=== PATIENT | female | born 1965 | race Caucasian/White ===

== ENCOUNTER → 2019-08-10 09:05 | Outpatient (CLI) | payer MEDICAID, SELFPAY ==
--- NOTE | 2019-08-10 09:29 | MRI_ITS ---
STUDY: MRI BRAIN WITH AND WITHOUT CONTRAST (ATTENTION INTERNAL AUDITORY CANALS - I.A.C.''s) REASON FOR EXAM: Female, 53 years old. dizziness, bilateral tinnitus, light headed TECHNIQUE: Standardized multiplanar fat and water weighted pulse sequences were obtained. iv Dotarem 15ml was administered for the contrast portion of the examination. COMPARISON: None. FINDINGS: Normal bilateral temporal bones. Normal bilateral internal auditory canals. There is no demonstrated intracanalicular or cisternal vestibular schwannoma (acoustic neuroma). There is no enhancement of the bilateral VIIth or VIIIth cranial nerves. Normal bilateral cochlea, vestibules and semicircular canals. Normal size of the ventricles and extra-axial spaces for the patient''s age. Normal white matter tracts of the supratentorial brain. There is no evidence for recent intracranial ischemia or other cause of cytotoxic edema on diffusion weighted imaging (DWI). Normal T2* images of the brain without demonstrated susceptibility artifact. There is no demonstrated hemosiderin stain. Normal bilateral basal ganglia. Normal thalami. Normal flow voids within the major intracranial circulation suggesting patency by spin echo criteria. Normal venous enhancement. There is no enhancing intra-axial or extra-axial abnormality. There is no extra-axial fluid accumulation. Normal sella turcica, pituitary gland, infundibular stalk, optic chiasm and hypothalamus. Normal tectal plate and pineal gland. Normal midbrain, amparo and medulla. Normal cerebellum. Normal basal cisterns. No demonstrated orbital abnormality, within the constraints of a routine brain study. Normal visualized paranasal sinuses. Normal calvarium and skull base. Normal visualized soft tissue structures. Normal visualized upper cervical spine. MRI/Brain W/WO Contrast IMPRESSION: Normal unenhanced and enhanced MRI of the bilateral internal auditory canals (I.A.C''s). Electronically Signed: Alen Reyez MD at 14:09 EST Tel , Service support ,
== END ==
PROVIDERS: PCP Nurse Practitioner Family; Referring Provider Otolaryngology; Visit Provider Otolaryngology
DX: R42 Dizziness and giddiness (principal)
CPT/HCPCS: 70553; A9575

== ENCOUNTER → 2022-02-27 | Outpatient (CLI) | payer MEDICARE, MEDICAID, SELFPAY ==
--- NOTE | 2022-02-27 17:08 | TILTTABLE_ITS ---
Staff Staff: Lisa Zheng, Chitra Cooper and Evelia Romano Summary Protocol: 70 Degree Upright Tilt Pre Test Resting HR: 70 Pre Test Resting BP: 142/67 Minimum Test HR: 68 Maximum Test HR: 106 Minimum Test BP: 128/68 Maximum Test BP: 151/77 Reason for Test Termination: Reached Maximum Test Time Physician Tilt Table Report Patient's Physicians Primary Care Physician: Bonnie Auguste NP Chief Librarian Branch Or Department: Delfino Garcia Indications/Diagnosis: Syncope Procedure Comments: The patient presented to the tilt table laboratory and was awake and alert and warm and dry. The baseline heart rate was 70 bpm with a baseline blood pressure 142/67 mmHg. The cardiac rhythm was normal sinus rhythm. The patient was placed in the 70 degree upright tilt table position for 20 minutes. The patient remained awake and alert and warm and dry. The minimal heart rate was 68 bpm with a minimal blood pressure 128/68 mmHg. The cardiac rhythm remained normal sinus rhythm. The patient noted dizziness, and arm cooler , but did not lose consciousness. The patient was returned to the supine position. The patient was administered nitroglycerin sublingual 0.4 mg x 1. The patient was then returned to the 70 degree upright tilt table position for approximately 8 minutes. The patient remained alert and oriented and warm and dry. During that time the minimal heart rate was 85 bpm with a minimal blood pressure 131/63 mmHg. The cardiac rhythm remained sinus rhythm. The patient noted I feel less dizzy , arms cool , hands shaky, neck pale . The patient did not lose consciousness. The patient was returned to the supine position. The patient remained alert and oriented and warm and dry. The concluding heart rate was 75 bpm with a concluding blood pressure 129/78 mmHg. The cardiac rhythm remained sinus rhythm. Summary: 70 degree upright tilt table study pre and post nitroglycerin sublingual challenge considered negative for reproducible vasovagal/neurocardiogenic mediated syncope. This note was generated using a voice recognition system and there may be incorrect words, spelling or punctuation that were not noted when reviewing the office note prior to saving.
[2022-02-27 17:14] VITALS: BP 128/68; BP 142/67; BP 151/77
== END | disposition home or self-care (01) ==
PROVIDERS: PCP Nurse Practitioner Family; Referring Provider Psychiatry & Neurology Neurology; Visit Provider Psychiatry & Neurology Neurology
DX: R55 Syncope and collapse (principal)
CPT/HCPCS: 93660; J7040; A4216

== ENCOUNTER 2022-03-19 13:34 | Day surgery (SDC) | payer MEDICARE, MEDICAID, SELFPAY ==
[2022-03-19 13:58] VITALS: BP 138/71; PULSE 66; RESP 16; TEMP 36.7; O2SAT 96; BMI 31.1
[2022-03-19] MEDS: Lactated Ringers 1,000 ML 15 ML IV (14:17)
[2022-03-19] MEDS: Cefazolin 2 GM in 0.9% Normal Saline 100 ML IV (16:10)
[2022-03-19] MEDS: Lidocaine 2% (20 ml mdv) 20 ML Vial (16:24)
--- NOTE | 2022-03-19 16:28 | RAD_ITS ---
INDICATION: PERMANENT SPINAL CORD STIM EXAMINATION/TECHNIQUE: X-RAY - XR Spine Lumbar 2 or 3 Views COMPARISON: None. FLUOROSCOPY TIME: 238.8 seconds FLUOROSCOPY DOSE: 122.29 mGy FINDINGS: 10 images were obtained intraoperatively demonstrating placement of spinal cord simulator leads. No radiologist was present for the procedure, please refer to operative report for details. RAD/Lumbar Spine 2 or 3 Views IMPRESSION: Please refer to operative report for details. Electronically Signed: Mikie Weathers MD at 11:01 EDT ,
[2022-03-19] MEDS: Bacitracin 500 UNITS/GM PACKET (17:20)
--- NOTE | 2022-03-19 17:45 | OP.PCM_ITS ---
Report of Operation Date of Procedure: 03/19/22 Description of Surgical Findings:: Pre-Operative Diagnosis:?Lumbosacral radiculopathy, lumbosacral degenerative disc disease, lumbosacral spinal stenosis, postlaminectomy syndrome of the lumbar spine Post-Operative Diagnosis:?Lumbosacral radiculopathy, lumbosacral degenerative disc disease, lumbosacral spinal stenosis, postlaminectomy syndrome of the lumbar spine Surgery/Procedure Performed::?1.? Spinal cord stimulator thoracolumbar leads placement x2 #2 spinal cord stimulator Medtronic intellus generator placement #3 spinal cord stimulator generator pocket creation at the right gluteal region #4 spinal cord stimulator simple programming, 5-intraoperative fluoroscopic interpretation Description of Surgical Findings:: MAC COMPLICATIONS: None BLOOD LOSS: Minimal Implanted device: Spinal cord stimulator lead [id number] lot number [id number], lead #2? [id number] lot number [id number] Medtronic spinal cord stimulator generator intellus serial number [id number] PROCEDURE IN DETAIL: History and physical today was reviewed. Risks and benefits of procedure explained. The patient understood, agreed to procedure, informed consent was obtained. IV inserted per routine protocol. The patient was taken to the operating room, placed in the prone position with a pillow positioned underneath the abdomen. A 2 g of Ancef IV piggyback was infused per anesthesia. The lower back and right gluteal area was prepped and draped in a sterile fashion using iodine x3 Ioban was placed.? The C-arm was brought in position for AP view at the L2-3 vertebral bodies under direct visualization fluoroscopy on a true AP view the L2-3 interlaminar space was identified skin and subcutaneous tissue and size approximately 10 cc of a mix of 2% lidocaine and 0.25% Marcaine using a 25-gauge regular needle followed by a 25-gauge 3-1/2 inch spinal needle towards the interlaminar space at L2-3, the skin and subcutaneous tissue were then anesthetized and using an 11-gauge blade was then taken down to the skin and subcutaneous tissue using a 14-gauge 3-1/2 inch Touhy needle provided by the [employer] kit the needle was passed through the skin towards the interlaminar space at L2-3 and a paramedian approach the needle was then advanced under direct visualization fluoroscopy towards the interlaminar space at L2-3 [id number] technique was then carried to air towards the interlaminar space at L2-3 once the tip of the needle was in the epidural space and loss of resistance was encountered to air and after confirmation of AP as well as oblique view of the spinal cord stimulator lead was then advanced under direct visualization fluoroscopy to be at the tip of the lead at T8 and the bottom of the lead around mid T10 after confirmation of AP as well as lateral view to confirm correct placement of the lead in the posterior compartment of the epidural space the previous procedure was then repeated to the above level at L1-2 to the left lumbar paramedian approach, ?the second lead was then inserted under direct visualization with fluoroscopy to be at the mid T8 and mid T10 area the leads were were then connected to the external neurostimulator and patient was then awakened to confirm satisfactory coverage of the painful area once satisfactory coverage was then achieved the stylette of each needle was then removed and the skin and subcutaneous tissue on to the left of the paramedian needles was then taken anesthetized with a total of 10 cc of the previous mixture of 0.25% Marcaine and 2% lidocaine using a 25-gauge regular needle the incision was then taken down through the skin and subcutaneous tissue towards the fascia making sure hemostasis was then maintained via cautery, the spinal cord stimulator leads were then passed through the above incision and secured using the biwing and sutured down with a 2-0 silk to the fascia at that level the spinal cord stimulator leads were then tunneled via a tunneler provided by the [employer] kit towards the previously incised spinal cord stimulator battery at the right gluteal region skin and subcutaneous tissue were anesthetized with approximately 10 cc of a mix of 2% lidocaine and 0.25% Marcaine using a 25 gauge regular needle, skin and subcutaneous tissue was then taken down with the 11-gauge blade hemostasis was maintained with Bovie and direct pressure the incision was then taken down to the fascia and the battery was then secured with the 2-0 silk sutures that were the spinal cord stimulator leads the upper lead was then marked the new until spinal cord stimulator battery was then provided Via [employer] kit the battery was then reattached of the spinal cord stimulator make ensure that the top lead is attached to the top position from 0-7 electrodes and the bottom from 8-15 electrodes once impedance was then checked to be in the proper average number the intellus battery was then inserted into the pocket and impedance with when checked again the pocket was then inspected to confirm hemostasis in place, the intellus battery was then secured to the fascia using a 2-0 silk to the upper eyes of the battery confirming an upward writing of the intellus facing posterior,? once complete confirmation the battery was then placed in the position and the the mid paramedian and the gluteal incisions were then closed primarily through 0 Vicryl in an interrupted fashion followed by a 3-0 Vicryl in a running fashion followed by a 4-0 Vicryl to the skin, hemostasis was then maintained during the procedure the skin was then covered with a Steri-Strips and bacitracin patient was then returned into the supine position in a stable condition and returned to recovery in a stable condition patient experienced no signs or symptoms of intrathecal or intravascular injection patient experienced no paresthesia the procedure was completed without any apparent difficulty any complication the patient appeared to tolerate well, motor as well as sensory function was unchanged from prior to the procedure ESTIMATED BLOOD LOSS: Minimal less than 25 mL ASSESSMENT AND PLAN: This is a 56-year-old female with lumbosacral radiculopathy lumbosacral degenerative disc disease lumbosacral spinal stenosis, postlaminectomy syndrome of the lumbar spine status post 1.? Spinal cord stimulator thoracolumbar leads placement x2 #2 spinal cord stimulator Medtronic intellus generator placement #3 spinal cord stimulator generator pocket creation at the right gluteal region #4 spinal cord stimulator simple programming, 5-intraoperative fluoroscopic interpretation patient will continue her current medications a prescription was provided to the patient? Keflex 500 mg 1 p.o. every 8 hours for 7 days, postop instruction were given in writing to the patient and her significant other as well as verbally and in writing, patient will follow approximately 1 week for reevaluation.
[2022-03-19 17:50] VITALS: BP 130/88; BP 138/71; PULSE 91; RESP 16; TEMP 36.9; O2SAT 100
[2022-03-19 17:55] VITALS: BP 118/70; BP 138/71; PULSE 72; RESP 18; O2SAT 99
[2022-03-19 18:00] VITALS: BP 126/76; BP 138/71; PULSE 82; RESP 18; O2SAT 96
== END 2022-03-19 18:38 | disposition home or self-care (01) ==
LOC: SDC 13:35 → AC 13:36
PROVIDERS: PCP Nurse Practitioner Family; Referring Provider Anesthesiology Pain Medicine; Visit Provider Anesthesiology Pain Medicine
PROC: (CPT 63685; principal; 2022-03-19 15:00)
DX: M48.07 Spinal stenosis, lumbosacral region (principal); M96.1 Postlaminectomy syndrome, not elsewhere classified; I10 Essential (primary) hypertension; M51.17 Intervertebral disc disorders with radiculopathy, lumbosacral region
CPT/HCPCS: 63685; 63650 ×2; 00300; 72100; 76000; C1778; C1820; J7120; J2405

== ENCOUNTER → 2023-02-26 | Outpatient (CLI) | payer MEDICARE, SELFPAY ==
--- NOTE | 2023-02-26 10:57 | ART_ITS ---
Reason For Study: PVD Procedure A bilateral lower extremity continuous wave Doppler with analog waveform analysis,segmental pressures,and ankle brachial indexes without exercise. Left Segmental Pressures Left brachial= 151mmHg. Left posterior tibial artery = 171mmHg. Left dorsalis pedis artery = 149mmHg. Left digit = 102 mmHg. The left posterior tibial artery waveforms are triphasic. The left dorsalis pedis waveforms are triphasic. Right Segmental Pressures Right brachial= 144mmHg. Right posterior tibial artery = 174mmHg. Right dorsalis pedis artery = 157mmHg. Right digit = 112 mmHg. The right posterior tibial artery waveforms are triphasic. The right dorsalis pedis waveforms are triphasic. Indices The right ankle brachial index by the posterior tibial artery is 1.15. The right ankle brachial index by the dorsalis pedis is 1.04. The right digital-brachial index is 0.74. The left ankle brachial index by the posterior tibial artery is 1.13. The left ankle brachial index by the dorsalis pedis is 0.99. The left digital-brachial index is 0.68. VL/Lower Ext Art Exam w/o Exercis Interpretation Summary Triphasic Doppler waveforms are noted at ankle level bilaterally. Pulse-volume recordings appear diminished at digital level on the left, but satisfactory at all other levels b ilaterally. Resting ankle-brachial indices are normal bilaterally. The right digital-brachial index is normal. The left digital-brachial index is mildly diminished. Arterial flow appears to be normal at ankle level bilaterally, and at digital l evel on the right. There is evidence of mild arterial occlusive disease at digital level on the le ft. Ordering Physician: Stuart Newton Referring Physician: Bonnie Auguste Performed By: Larry Bazzi RVJose Alberto
== END | disposition home or self-care (01) ==
PROVIDERS: PCP Nurse Practitioner Family; Referring Provider Internal Medicine Cardiovascular Disease; Visit Provider Internal Medicine Cardiovascular Disease
DX: R42 Dizziness and giddiness (principal); I73.9 Peripheral vascular disease, unspecified
CPT/HCPCS: 93923

== ENCOUNTER → 2023-03-20 | Outpatient (CLI) | payer MEDICARE, SELFPAY ==
--- NOTE | 2023-03-20 13:33 | NEURO_ITS ---
NCS and/or EMG Patient Report Ordering Doctor: CHRISTINA GABRIEL DATE OF SERVICE: 03/20/23 Jacqui presents for electrodiagnostic testing of the lower limbs. She reports numbness and tingling in her left leg from the knee to the ng. She has had 2 back surgeries Electrodiagnostic findings: Left peroneal motor nerve demonstrates normal distal latency with borderline reduced amplitude and normal conduction velocity. Right peroneal motor response is within normal limits. Normal tibial motor response bilaterally. Normal peroneal and tibial F waves. Prolonged left sided H- reflex. Sensory responses are within normal limits. Needle EMG testing was performed in the lower limbs. All muscles tested showed no evidence of denervation with normal motor unit action potentials. Electrodiagnostic Impression: This is an abnormal study in the lower limbs. 1. 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 There is a near 75% reduction in amplitude on the left side compared to the right side. There is no evidence of conduction block at the fibular head. 2. No EMG evidence for lumbosacral radiculopathy. 3. No electrodiagnostic evidence for peripheral polyneuropathy. Multi Select Codes Neurology Neurology Interp Codes: 60951-83 Musc test done w/n test comp (interp) (2) and 49464-68 Nrv cndj test 11-12 studies (interp)
== END | disposition home or self-care (01) ==
LOC: PSN 12:08
PROVIDERS: PCP Nurse Practitioner Family; Referring Provider Nurse Practitioner Adult Health; Visit Provider Nurse Practitioner Adult Health
DX: R20.2 Paresthesia of skin (principal)
CPT/HCPCS: 95886; 95912

== ENCOUNTER → 2023-09-02 | Outpatient (CLI) | payer MEDICARE, MEDICAID, SELFPAY ==
--- OUTSIDE RECORDS SUMMARY | 2023-09-02 06:35 | XMS RPT_ITS | CCD ---
Author Name Unknown Address [address] [place] [address] Organization [facility] Care Team Providers Care Carry Out Clerk And Shelf Stocker Name Role Phone FATEMEH KRAUSE CNP Consulting Unavailable SHELLEY, PEBBLES PAC Admitting Unavailable SHELLEY, PEBBLES PAC Attending Unavailable SHELLEY, PEBBLES PAC Primary Care Unavailable PROVIDER, UNKNOWN Consulting Unavailable PROVIDER, UNKNOWN Consulting Unavailable FATEMEH KRAUSE CNP Referring Unavailable FATEMEH KRAUSE CNP Consulting Unavailable LEMASTERSAMMY Admitting Unavailable LEMASTERSAMMY Attending Unavailable LEMFELICIANO SULLIVANN D Primary Care Unavailable PROVIDER, UNKNOWN Consulting Unavailable PROVIDER, UNKNOWN Consulting Unavailable FATEMEH KRAUSE CNP Consulting Unavailable POORNIMA MUIR Admitting Unavailable POORNIMA MUIR Attending Unavailable ISADORA, POORNIMA Primary Care Unavailable PROVIDER, UNKNOWN Consulting Unavailable PROVIDER, UNKNOWN Consulting Unavailable FATEMEH KRAUSE CNP Consulting Unavailable WINDNAGEL, CHRISTINA HARNESS RIGGER Admitting Unavailab le WINDNAGEL, CHRISTINA HARNESS RIGGER Attending Unavailab le WINDNAGEL, CHRISTINA HARNESS RIGGER Primary Care Unavailab le PROVIDER, UNKNOWN Consulting Unavailable PROVIDER, UNKNOWN Consulting Unavailable CLAUDETTE, VERA L Primary Care Unavailable FATEMEH KRUASE CNP Consulting Unavailable CLAUDETTE, VERA L Admitting Unavailable CLAUDETTE, VERA L Attending Unavailable PROVIDER, UNKNOWN Consulting Unavailable PROVIDER, UNKNOWN Consulting Unavailable FATEMEH KRAUSE CNP Consulting Unavailable ISADORA, POORNIMA Admitting Unavailable POORNIMA MUIR Attending Unavailable ISADORA, POORNIMA Primary Care Unavailable PROVIDER, UNKNOWN Consulting Unavailable PROVIDER, UNKNOWN Consulting Unavailable Allergies Allergy Classification Reported Allergen(s) Allergy Type Date of Onset Reaction(s) Facility (1 source) Latex; Translations: [LATEX] Propensity to adverse reactions (disorder) [facility] Repository Results Test Name Value Interpretation Reference Range Facil ity Encounters Encounter Date Encounter Type Care Provider Facility Start: 07-24-2023 ambulatory FATEMEH KRAUSE [facility] Start: 07-09-2023 End: 07-09-2023 ambulatory FATEMEH HARNESS RIGGER [facility] Start: 05-16-2023 End: 05-16-2023 ambulatory FATEMEH LANG [facility] Start: 02-20-2023 End: 02-20-2023 ambulatory VERA WILKINS [facility] Start: 01-16-2023 End: 01-16-2023 ambulatory FATEMEH LANG [facility] Start: 12-21-2022 End: 12-21-2022 Emergency department patient visit FATEMEH LANG [facility] Payers Date Payer Category Payer Unknown [id number] 2.16.8 [id number] 1965 Unknown [id number] 2.16.8 [id number] 1965 Unknown [id number] 2.16.8 [id number] 1964 Unknown [id number] 2.16.8 [id number] 1964 Unknown [id number] 2.16.8 [id number] 1965 Unknown [id number] 2.16.8 [id number] Medicaid [id number] Medicare [id number] Private Health Insurance [id number] Private Health Insurance [id number] Summary Purpose Family History No Family History Records FoundNo Family History Records FoundNo Family History Records Found Advance Directives No Advanced Directives Records FoundNo Advanced Directives Records FoundNo Advanced Directives Records Found Additional Source Comments INFORMATION SOURCE (unrecogn ized section and content) DATE CREATED AUTHOR AUTHOR'S ORGANIZ ATION 01/17/2022 [facility] ([place]) DATE CREATED AUTHOR AUTHOR'S ORGANIZ ATION 07/25/2023 [facility] FOR RECORDS PERTAINING TO PATIENTS WHO ARE OR HAVE BEEN ENROLLED IN A CHEMICAL DEPENDENCY/SUBSTANCEABUSE PROGRAM, SOME INFORMATION MAY BE OMITTED. This clinical summary was aggregated from multiple sources. Caution should be exercised in using it in the provision of clinical care. This summary normalizes information from multiple sources, and as a consequence, information in this document may materially change the coding, format and clinical context of patient data. In addition, data may be omitted in some cases. CLINICAL DECISIONS SHOULD BE BASED ON THE PRIMARY CLINICAL RECORDS. [facility]. provides no warranty or guarantee of the accuracy or completeness of information in this document.
--- NOTE | 2023-09-02 06:49 | MRI_ITS ---
INDICATION: lumbar radiculopathy with left foot drop -- spine stimulator EXAMINATION: MRI - MR Spine Lumbar WO/W Contrast TECHNIQUE: Multiplanar and multisequence MR images of the lumbar spine performed with sequences were acquired before and after the administration of 15 mL Clariscan COMPARISON: Radiographs dated 08/23/2023 FINDINGS: VERTEBRAE: Assuming 5 lumbar-appearing vertebral bodies, the patient is status post posterior spinal fusion at L4-5 consisting of bilateral paraspinal rods and transpedicular screws status post posterior laminectomy at L4. Vertebral body heights are preserved. Degenerative endplate marrow signal abnormality at L4-5. No suspicious osseous lesions. VERTEBRAL ALIGNMENT: No spondylolisthesis. There is preservation of the normal lumbar lordosis. CORD: Normal position and signal intensity of the conus medullaris. Assuming the above convention evaluation of the individual levels is as follows: L1/L2: Normal disc height and morphology. Normal spinal canal, lateral recesses and neuroforamina. L2/L3: Normal disc height and morphology. Normal spinal canal, lateral recesses and neuroforamina. Mild facet arthropathy. L3/L4: Minimal diffuse disc bulge. Moderate facet arthropathy and ligamentum flavum hypertrophy. Mild encroachment of the inferior neural foramina bilaterally, without contact of the exiting nerve root. No significant central canal stenosis. L4/L5: There is disc desiccation and mild loss of disc space height. No disc herniation. Assessment of the neural foramina limited by susceptibility artifact, however there is no significant foraminal narrowing on either side. Central canal is decompressed posteriorly. L5/S1: Normal disc height and morphology. Normal spinal canal, lateral recesses and neuroforamina. SOFT TISSUES: Unremarkable. Simple cyst in the right kidney is benign. No follow-up imaging recommended. Cholelithiasis. No retroperitoneal lymphadenopathy. MRI/Spine Lumbar W/WO Contrast IMPRESSION: * Assuming this convention described above, the patient is status post posterior spinal fusion at L4-5 with bilateral paraspinal rods and transpedicular screws status post posterior laminectomy at L4. * There is minimal diffuse disc bulge L3-4 and moderate facet arthropathy leading to mild bilateral neural foraminal narrowing at L3-4 without exiting nerve root contact or compression. * No significant central canal stenosis at any level. * Cholelithiasis. Electronically Signed: Negro Christine MD at 6:03 EST ,
[2023-09-02 07:11] LABS: CREATININE FINGERSTICK < 1.0 mg/dL (0.55-1.02); EGFR FINGERSTICK > 60.0000 mL/min (>60)
== END | disposition home or self-care (01) ==
PROVIDERS: PCP Nurse Practitioner Family; Referring Provider Orthopaedic Surgery Orthopaedic Surgery of the Spine; Visit Provider Orthopaedic Surgery Orthopaedic Surgery of the Spine
DX: M54.16 Radiculopathy, lumbar region (principal); M21.372 Foot drop, left foot
CPT/HCPCS: 72158; A9575